=== PATIENT | male | born 1950 | race Two or more races ===

== ENCOUNTER 2023-01-15 21:29 | Inpatient (IN) | payer OTHER ==
[~2023-01-15] VITALS: Ht 175.3 cm; Wt 72.6 kg
[2023-01-15] MEDS ORDERED: CARVEDILOL ER40 MG (21:52)
[2023-01-15] MEDS ORDERED: JARDIANCE10 MG PO (21:52)
[2023-01-15] MEDS ORDERED: LEVOTHYROXINE25 MCG (21:53)
[2023-01-15] MEDS ORDERED: REPATHA PU420 MG/3.5 SQ (21:53)
[2023-01-15] MEDS ORDERED: CHILDREN'S ASPI81 MG PO (21:53)
--- NOTE | 2023-01-15 22:00 | NUR ---
PACIENTE ALERTA Y ORINETANDO X3, REFIERE VENIR POR PARTE DE LA ADRIANA. RACHNA FISHER PARA ADMISION DIRECTA DEBIDO A QUE TIENE 8 DE HEMOGLOBINA. SE MONITORENA VS Y SE UBICA EN SECCION K
[2023-02-01] MEDS ORDERED: MEGESTROL400 MG/11 PO (16:31)
[2023-02-01] MEDS ORDERED: CLOTRIMAZOLE10 MG MM (16:31)
[2023-02-01] MEDS ORDERED: FAMOTIDINE20 MG/2 M1 PO (16:33)
[2023-02-01] MEDS ORDERED: ONDANSETRON4 MG/2 M1 PO (16:33)
== END 2023-02-01 17:33 | disposition home or self-care (01) | DRG 330 ==
LOC: ER 21:29 → SURH 22:52 → MEDI 22:52 → SURH 01-28 16:09
PROVIDERS: Colon & Rectal Surgery; General Practice; ADMIT Internal Medicine Cardiovascular Disease; ATTEND Internal Medicine Cardiovascular Disease
PROC: 30233N1 Transfusion of Nonautologous Red Blood Cells into Peripheral Vein, Percutaneous Approach (ICD-10-PCS; 2023-01-16)
PROC: B24BZZZ Ultrasonography of Heart with Aorta (ICD-10-PCS; 2023-01-17)
PROC: 4A12X4Z Monitoring of Cardiac Electrical Activity, External Approach (ICD-10-PCS; 2023-01-18)
PROC: 0DBM8ZX Excision of Descending Colon, Via Natural or Artificial Opening Endoscopic, Diagnostic (ICD-10-PCS; 2023-01-20)
PROC: 0DBL8ZX Excision of Transverse Colon, Via Natural or Artificial Opening Endoscopic, Diagnostic (ICD-10-PCS; 2023-01-20)
PROC: 0D1B4Z4 Bypass Ileum to Cutaneous, Percutaneous Endoscopic Approach (ICD-10-PCS; principal; 2023-01-28 18:45)
PROC: 05HM33Z Insertion of Infusion Device into Right Internal Jugular Vein, Percutaneous Approach (ICD-10-PCS; 2023-01-31)
DX: C18.2 Malignant neoplasm of ascending colon (principal); C78.00 Secondary malignant neoplasm of unspecified lung; C78.7 Secondary malignant neoplasm of liver and intrahepatic bile duct; I43 Cardiomyopathy in diseases classified elsewhere; D63.0 Anemia in neoplastic disease; E03.9 Hypothyroidism, unspecified; I25.10 Atherosclerotic heart disease of native coronary artery without angina pectoris; I11.9 Hypertensive heart disease without heart failure; G47.33 Obstructive sleep apnea (adult) (pediatric); E78.5 Hyperlipidemia, unspecified; I11.0 Hypertensive heart disease with heart failure; I50.9 Heart failure, unspecified; E11.9 Type 2 diabetes mellitus without complications; Z79.4 Long term (current) use of insulin; Z98.61 Coronary angioplasty status

== ENCOUNTER 2023-02-21 10:18 | Inpatient (IN) | payer OTHER ==
[~2023-02-21] VITALS: Ht 172.7 cm; Wt 61.2 kg
[~2023-02-21 10:18] MED LIST: CARVEDILOL ER40 MG; CHILDREN'S ASPI81 MG PO; CLOTRIMAZOLE10 MG MM; FAMOTIDINE20 MG/2 M1 PO; JARDIANCE10 MG PO; LEVOTHYROXINE25 MCG; MEGESTROL400 MG/11 PO; ONDANSETRON4 MG/2 M1 PO; REPATHA PU420 MG/3.5 SQ
[2023-02-21 11:53] LABS: ABG PH 7.363 (7.35-7.45)
[2023-02-21 11:54] LABS: ABG PO2 112.9 mmHg (80-100); ABG pCO2 17.4 mmHg (35-45); BASE EXCESS -12.8 mmol/l; BICARBONATE 9.7 mmol/l (23-25); Tco2 10.2 mmol/l; allen test SATISFACTORY; o2 21 %; puncture site RADIAL LEFT
[2023-02-21 11:56] LABS: HEMATOCRIT 33.9 % (39.0-48.0); HEMOGLOBIN 11.3 g/dL (13-16.00); MEAN CELL VOLUME 76.1 fL (80.0-100.00); MEAN CORPUSCULAR HEMOGLOBIN 25.3 pg (27.00-32.0); MEAN CORPUSCULAR HGB CONC 33.3 g/dl (32.0-36.0); PLATELET COUNT 414 K/uL (150-450); RED BLOOD COUNT 4.46 M/uL (4.00-6.00); RED CELL DISTRIBUTION WIDTH 19.3 % (11.5-14.5)
[2023-02-21 15:01] LABS: CALCIUM 9.2 mg/dL (8.5-10.1); CHOL HDL RATIO 4.9 (0-5.0); CREATININE SERUM 1.44 mg/dL (0.70-1.30); GFR 48.22; POTASSIUM 5.21 mEq/L (3.5-5.1); URIC ACID 7.2 mg/dL (3.5-8.5)
[2023-02-21 15:44] LABS: DIGOXIN 0.2 ng/ml (0.8-2.0); INR 1.43; PROTHROMBIN TIME 14.6 SECONDS (9.0-11.5)
[2023-02-21 22:22] LABS: C-REACTIVE PROTEIN 26.4 MG/DL (0.00-0.29)
[2023-02-21 22:28] LABS: CREATININE SERUM 1.25 mg/dL (0.8-1.3)
[2023-02-23 02:36] LABS: CREATININE SERUM 1.44 mg/dL (0.8-1.3)
[2023-02-23 02:52] LABS: CREATININE URINE 60.3 MG/DL; URINE PROT QUANT 24HR 97.8 MG/DL
[2023-02-23 03:01] LABS: URINE PROT QUANT 24 HR 1344.75 MG/24HR (42-225)
[2023-02-23 03:03] LABS: CREATINE CLEARANCE 40.1 ML/MIN (97-137)
[2023-02-23 08:19] LABS: CALCIUM 9.1 mg/dL (8.5-10.1); CREATININE SERUM 1.06 mg/dL (0.70-1.30); GFR 68.67; POTASSIUM 4.48 mEq/L (3.5-5.1)
[2023-02-24 08:08] LABS: HEMATOCRIT 31.6 % (39.0-48.0); HEMOGLOBIN 10.3 g/dL (13-16.00); MEAN CELL VOLUME 76.8 fL (80.0-100.00); MEAN CORPUSCULAR HEMOGLOBIN 25.1 pg (27.00-32.0); MEAN CORPUSCULAR HGB CONC 32.6 g/dl (32.0-36.0); PLATELET COUNT 287 K/uL (150-450); RED BLOOD COUNT 4.11 M/uL (4.00-6.00); RED CELL DISTRIBUTION WIDTH 18.6 % (11.5-14.5)
[2023-02-24 09:04] LABS: ALBUMIN 2.2 gm/dL (3.4-5.0); BILIRUBIN TOTAL 0.76 mg/dL (0.3-1.2); CALCIUM 8.9 mg/dL (8.5-10.1); CREATININE SERUM 1.05 mg/dL (0.70-1.30); GFR 69.43; GLOBULINA 4.2 G/DL (2.4-3.5); POTASSIUM 4.43 mEq/L (3.5-5.1); TOTAL PROTEIN 6.4 gm/dL (6.4-8.2)
[2023-02-26] MEDS ORDERED: ALBUTEROL2.5 MG/3 M IH (16:33)
[2023-02-26] MEDS ORDERED: CLOTRIMAZOLE10 MG MM (16:33)
[2023-02-26] MEDS ORDERED: FAMOTIDINE20 MG PO (16:33)
[2023-02-26] MEDS ORDERED: ISOSORBIDE DINIT5 MG PO (16:33)
[2023-02-26] MEDS ORDERED: MEGESTROL400 MG/11 PO (16:33)
[2023-02-26] MEDS ORDERED: ONDANSETRON4 MG/2 M1 PO (16:33)
[2023-02-26] MEDS ORDERED: LEVOFLOXACIN750 MG PO (16:33)
[2023-02-26] MEDS ORDERED: SERTRALINE HCL50 MG PO (16:35)
== END 2023-02-26 19:15 | disposition home or self-care (01) | DRG 291 ==
LOC: ER 10:18 → SURH 20:40 → SEC-K 20:40 → SURH 21:17
PROVIDERS: Emergency Medicine; Student in an Organized Health Care Education/Training Program; ADMIT Internal Medicine Cardiovascular Disease; ATTEND Internal Medicine Cardiovascular Disease
PROC: BW24ZZZ Computerized Tomography (CT Scan) of Chest and Abdomen (ICD-10-PCS; principal; 2023-02-21)
PROC: B24BZZZ Ultrasonography of Heart with Aorta (ICD-10-PCS; 2023-02-21)
PROC: 4A12X4Z Monitoring of Cardiac Electrical Activity, External Approach (ICD-10-PCS; 2023-02-22)
PROC: BW28ZZZ Computerized Tomography (CT Scan) of Head (ICD-10-PCS; 2023-02-25)
DX: I13.0 Hypertensive heart and chronic kidney disease with heart failure and stage 1 through stage 4 chronic kidney disease, or unspecified chronic kidney disease (principal); I50.23 Acute on chronic systolic (congestive) heart failure; C18.2 Malignant neoplasm of ascending colon; C78.7 Secondary malignant neoplasm of liver and intrahepatic bile duct; C78.00 Secondary malignant neoplasm of unspecified lung; E86.0 Dehydration; I43 Cardiomyopathy in diseases classified elsewhere; N18.9 Chronic kidney disease, unspecified; D63.0 Anemia in neoplastic disease; E11.65 Type 2 diabetes mellitus with hyperglycemia; Z79.4 Long term (current) use of insulin; E11.22 Type 2 diabetes mellitus with diabetic chronic kidney disease; Z98.61 Coronary angioplasty status; I25.10 Atherosclerotic heart disease of native coronary artery without angina pectoris

== ENCOUNTER 2023-05-09 13:15 | Outpatient (CLI) | payer OTHER ==
[~2023-05-09 13:15] MED LIST changes: +ALBUTEROL2.5 MG/3 M IH; +FAMOTIDINE20 MG PO; +ISOSORBIDE DINIT5 MG PO; +LEVOFLOXACIN750 MG PO; +SERTRALINE HCL50 MG PO
== END 2023-05-09 13:19 | disposition home or self-care (01) ==
LOC: RAD 13:15
DX: C18.9 Malignant neoplasm of colon, unspecified (principal)

== ENCOUNTER 2023-06-17 12:36 | Inpatient (IN) | payer OTHER ==
[~2023-06-17] VITALS: Ht 170.2 cm; Wt 62.1 kg
[2023-06-17 15:01] LABS: HEMATOCRIT 26.1 % (39.0-48.0); MEAN CELL VOLUME 84.9 fL (80.0-100.00); MEAN CORPUSCULAR HGB CONC 32.6 g/dl (32.0-36.0); PLATELET COUNT 283 K/uL (150-450); RED BLOOD COUNT 3.07 M/uL (4.00-6.00); RED CELL DISTRIBUTION WIDTH 16.7 % (11.5-14.5)
[2023-06-17 15:02] LABS: HEMOGLOBIN 8.5 g/dL (13-16.00); MEAN CORPUSCULAR HEMOGLOBIN 27.6 pg (27.00-32.0)
[2023-06-17 15:28] LABS: ALBUMIN 2.1 gm/dL (3.4-5.0); BILIRUBIN TOTAL 0.85 mg/dL (0.3-1.2); CALCIUM 8.9 mg/dL (8.5-10.1); CREATININE SERUM 1.05 mg/dL (0.70-1.30); GFR 69.43; GLOBULINA 5.3 G/DL (2.4-3.5); POTASSIUM 3.91 mEq/L (3.5-5.1); TOTAL PROTEIN 7.4 gm/dL (6.4-8.2)
[2023-06-17 15:30] LABS: INR 1.31; PARTIAL THROMBOPLASTIN TIME 33.7 SECONDS (22.0-34.0); PROTHROMBIN TIME 13.5 SECONDS (9.0-11.5)
[2023-06-17 17:43] LABS: ABG PH 7.426 (7.35-7.45); ABG PO2 95.9 mmHg (80-100); ABG pCO2 30.4 mmHg (35-45); BASE EXCESS -3.5 mmol/l; SaO2 97.5 %
[2023-06-17 17:44] LABS: BICARBONATE 19.6 mmol/l (23-25); Tco2 20.5 mmol/l; allen test SATISFACTORY; o2 21 %; puncture site RADIAL LEFT
[2023-06-18 07:25] LABS: TSH 4.77 uIU/mL (0.358-3.74)
[2023-06-18 07:29] LABS: C-REACTIVE PROTEIN 14.7 MG/DL (0.00-0.29)
[2023-06-19 17:24] LABS: ALBUMIN 2.2 gm/dL (3.4-5.0); BILIRUBIN TOTAL 0.76 mg/dL (0.3-1.2); CALCIUM 8.5 mg/dL (8.5-10.1); CREATININE SERUM 0.87 mg/dL (0.70-1.30); GFR 86.26; GLOBULINA 4.6 G/DL (2.4-3.5); POTASSIUM 4.3 mEq/L (3.5-5.1); TOTAL PROTEIN 6.8 gm/dL (6.4-8.2)
[2023-06-20 22:32] LABS: HEMOGLOBIN 12.5 g/dL (13-16.00); MEAN CELL VOLUME 82.2 fL (80.0-100.00); MEAN CORPUSCULAR HEMOGLOBIN 27.7 pg (27.00-32.0); MEAN CORPUSCULAR HGB CONC 33.8 g/dl (32.0-36.0); PLATELET COUNT 238 K/uL (150-450)
[2023-06-24 07:16] LABS: HEMOGLOBIN 11.3 g/dL (13-16.00); MEAN CELL VOLUME 81.9 fL (80.0-100.00); MEAN CORPUSCULAR HEMOGLOBIN 27.2 pg (27.00-32.0); MEAN CORPUSCULAR HGB CONC 33.2 g/dl (32.0-36.0); PLATELET COUNT 185 K/uL (150-450); RED BLOOD COUNT 4.15 M/uL (4.00-6.00); RED CELL DISTRIBUTION WIDTH 16.4 % (11.5-14.5)
[2023-06-24] MEDS ORDERED: LEVOTHYROXINE112 MCG PO (12:50)
[2023-06-24] MEDS ORDERED: ISOSORBIDE DINIT5 MG PO (12:50)
[2023-06-24] MEDS ORDERED: SERTRALINE HCL50 MG PO (12:50)
[2023-06-24] MEDS ORDERED: INTESTINEX680 M1 PO (12:50)
[2023-06-24] MEDS ORDERED: TUSSIN MUC100 MG/5 M PO (12:50)
[2023-06-24] MEDS ORDERED: PRE PROTEIN1 EACH PO (12:50)
[2023-06-24] MEDS ORDERED: ALBUTEROL2.5 MG/3 M IH (12:50)
[2023-06-24] MEDS ORDERED: PANTOPRAZOLE SO40 MG PO (12:50)
[2023-06-24] MEDS ORDERED: ONDANSETRON4 MG/2 M1 IV (12:50)
[2023-06-24] MEDS ORDERED: CEFACLOR250 MG PO (12:50)
[2023-06-24] MEDS ORDERED: Lantus 1000 UNITS/10 SUBCUTANEO (12:50)
[2023-06-24 13:34] LABS: CORTISOL 34.23 ug/dl
[2023-06-25 19:03] LABS: PROCALCITONIN 1.72 ng/ml (0.020-0.080)
== END 2023-06-24 15:54 | disposition home or self-care (01) | DRG 292 ==
LOC: ER 12:37 → SURH 17:49
PROVIDERS: Emergency Medicine; Student in an Organized Health Care Education/Training Program; ADMIT Internal Medicine Cardiovascular Disease; ATTEND Internal Medicine Cardiovascular Disease
PROC: BW24ZZZ Computerized Tomography (CT Scan) of Chest and Abdomen (ICD-10-PCS; 2023-06-17)
PROC: B24BYZZ Ultrasonography of Heart with Aorta using Other Contrast (ICD-10-PCS; 2023-06-17)
PROC: 4A12X4Z Monitoring of Cardiac Electrical Activity, External Approach (ICD-10-PCS; principal; 2023-06-18)
PROC: 30243N1 Transfusion of Nonautologous Red Blood Cells into Central Vein, Percutaneous Approach (ICD-10-PCS; 2023-06-18)
PROC: BW21ZZZ Computerized Tomography (CT Scan) of Abdomen and Pelvis (ICD-10-PCS; 2023-06-19)
DX: I50.9 Heart failure, unspecified (principal); C18.2 Malignant neoplasm of ascending colon; I50.20 Unspecified systolic (congestive) heart failure; I95.9 Hypotension, unspecified; D64.9 Anemia, unspecified